=== PATIENT | female | born 1965 | race Caucasian/White ===

== ENCOUNTER → 2022-03-03 11:32 | Outpatient (BNVA) | payer OTHER, SELFPAY | PROVIDERS: PCP Nurse Practitioner Family; Visit Provider Internal Medicine Critical Care Medicine | DX: J84.112 Idiopathic pulmonary fibrosis (principal); R06.02 Shortness of breath | CPT/HCPCS: 36415; 82085; 82550; 85651; 86038; 86140; 86200; 86235; 86431 ==

== ENCOUNTER 2022-03-24 13:30 | Outpatient (CLI) | payer OTHER, SELFPAY ==
--- NOTE | 2022-03-24 14:00 | CT_ITS ---
WS: [id number] CT CHEST TECHNIQUE: Noncontrast CT of the chest with coronal and sagittal reformatted images. CLINICAL INFORMATION: Idiopathic pulmonary fibrosis COMPARISON: None. DLP: 1738.[address] scans at [facility] use at least one of these dose optimization techniques: automated e xposure control; mA and/or kV adjustment per patient size (includes targeted exams where dose is matc hed to clinical indication); or iterative reconstruction. FINDINGS: Postoperative bilateral breast implants. Moderate chronic emphysematous changes. Periseptal emphysema . Subpleural honeycombing in the mid and lower lungs bilaterally. Chronic interstitial thickening wit h scattered reticular opacities. Mild traction bronchiectasis LEFT upper lobe. Aortic calcification. Aberrant RIGHT subclavian artery. No mediastinal or hilar lymphadenopathy. A fe w prominent anterior mediastinal lymph nodes and paratracheal lymph nodes likely reactive. Adrenal glands are normal. Small esophageal hiatal hernia. No axillary lymphadenopathy. No significan t air trapping on expiratory imaging. CT/CT chest wo con [id number] IMPRESSION: 1. Findings compatible with idiopathic pulmonary fibrosis. 2. Subpleural honeycombing in the mid and lower lungs bilaterally. 3. No significant air trapping on the expiratory images. 4. Scattered reticular opacities with mild traction bronchiectasis LEFT upper lobe. 5. Chronic emphysematous changes with periseptal emphysema. 6. Aberrant RIGHT subclavian artery.
== END 2022-03-24 13:31 | disposition home or self-care (01) ==
PROVIDERS: PCP Nurse Practitioner Family; Visit Provider Internal Medicine Critical Care Medicine
DX: J84.112 Idiopathic pulmonary fibrosis (principal); J98.4 Other disorders of lung; J47.9 Bronchiectasis, uncomplicated; J43.8 Other emphysema; Q27.8 Other specified congenital malformations of peripheral vascular system
CPT/HCPCS: 71250

== ENCOUNTER → 2022-03-28 11:25 | Outpatient (BNVA) | payer OTHER, SELFPAY | PROVIDERS: PCP Nurse Practitioner Family; Visit Provider Internal Medicine Critical Care Medicine | DX: J84.112 Idiopathic pulmonary fibrosis (principal); R06.02 Shortness of breath | CPT/HCPCS: 80053; 85025 ==

== ENCOUNTER → 2022-04-11 10:13 | Outpatient (BNVA) | payer OTHER, SELFPAY | PROVIDERS: PCP Nurse Practitioner Family; Visit Provider Internal Medicine Rheumatology | DX: R76.8 Other specified abnormal immunological findings in serum (principal); J84.9 Interstitial pulmonary disease, unspecified; J84.112 Idiopathic pulmonary fibrosis | CPT/HCPCS: 36415; 86160; 86162; 86235; 86255; 86376 ==

== ENCOUNTER 2022-06-08 20:14 | Emergency (ER) | payer OTHER, SELFPAY ==
[2022-06-08 20:24] VITALS: BP 105/67; PULSE 105; RESP 22; TEMP 36.8; O2SAT 90; BMI 31.3
[2022-06-08 21:58] VITALS: BP 125/68; PULSE 85; RESP 16; TEMP 37.5; O2SAT 93
[2022-06-08 22:00] VITALS: O2SAT 93
--- NOTE | 2022-06-08 22:01 | ED_ITS ---
HPI - COVID General: Chief Complaint: COVID symptoms Stated Complaint: Sinus Draining\Cough\Weak Time Seen by Provider: 06/08/22 22:01 Triage information: Has fever, cough or shortness of breath . Exposure to COVID + person last 14 days History of Present Illness: Ms. Mario is a 56-year-old lady with history of interstitial lung disease who presents to the emergency department due to shortness of breath. She has known positive exposure to COVID and though he has had mild symptoms. Symptom onset was approximately 5 days ago and subacute. She endorses generalized malaise, headache, shortness of breath, mildly productive cough, and muscle aches. Intensity symptoms is moderate and worse with exertion. No other specific changes in health, exacerbating, or alleviating factors identified. 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 Hypothyroidism Polycystic ovarian disease Positive ALFREDO (antinuclear antibody) Surgical History H/O breast augmentation H/O removal of cyst Family History Father Cancer Other Lupus Denies family history of Rheumatoid arthritis Diabetes Chronic kidney disease (CKD) Family history of premature coronary artery disease Lung disease Hypertension Stroke Social History Smoking and tobacco status: never smoked Quit status (tobacco): has quit using tobacco Year quit tobacco: 2018 Former quit date comment: 1 ppd X 37 years, started at age 15 Physical Exam Const: COMMON NORMALS: alert GENERAL APPEARANCE: cooperative, well developed and ill appearing (somewhat) HENMT: COMMON NORMALS: normocephalic and atraumatic HEAD & SCALP: normocephalic and atraumatic THROAT: posterior oropharynx normal Eye: COMMON NORMALS: conjunctivae normal CONJUNCTIVA: Yes conjunctivae normal SCLERA: sclerae normal Neck/C-Spine: COMMON NORMALS: supple GENERAL: Yes trachea midline Resp: EFFORT & INSPECTION: Yes able to speak in complete sentences AUSCULTATION: other (coarse, velcro-like) Cardio: COMMON NORMALS: regular rhythm RATE: tachycardic RHYTHM: regular rhythm GI: COMMON NORMALS: Soft to palpation PALPATION: Yes Soft to palpation and No Tenderness to palpation present (GI) PERCUSSION: normal to percussion Extremity: GENERAL: Yes normal exam except as noted and No edema Neuro: COMMON NORMALS: moves all extremities SENSORIUM/ORIENTATION: Yes alert and No Orientation impaired Psych: COMMON NORMALS: mental status grossly normal and Normal thought process present THOUGHT PROCESS: Normal thought process present Course ED course: - Patient was seen and evaluated by me at bedside - Patient placed on cardiac monitors, IV access obtained - Initial evaluation notable for exam as above. New oxygen requirement. - Labs and xrays personally interpreted by me - Fluids, analgesia, and antiemetics given - Labs notable for COVID-positive. mild Leukocytosis, normal hemoglobin. Metabolic panel with mild evidence of dehydration. Elevated TSH with normal free T4. No evidence of urinary tract action. - Imaging notable for bilateral infiltrates. No pneumothorax. - Upon serial reexamination after treatment the patient was improved - Based on patient history, evaluation, and testing as interpreted the most likely cause of the patient's condition is COVID in the context of Idiopathic interstitial lung disease. Patient qualifies for home oxygen. - The results of ED evaluation were discussed with the patient including prescriptions and/or symptomatic cares (if applicable) including appropriate and responsible use, followup plan, and return precautions. The patient verbalized understanding and felt safe for discharge. - Patient discharged in satisfactory condition. Note: Click bubbles or prepopulated bejarano in note writing are used for assistance with data collection and billing and are inherently more limited than narrative and other text portions of this note. Please use narrative for additional clinical history and defer to narrative/free test for any case of contradictory information. If information appears in only free text or click bubble it should be considered present or absent as reported. Please contact note blog writer for clarifications of clinical information or contradictory information. MDM is a brief summary, contradictory or erroneous seeming information should be clarified and full note should be reviewed. Vital Signs: Vital signs: Vital Signs Temperature 99.5 F 06/08/22 21:58 Pulse Rate 80 06/09/22 02:30 Respiratory Rate 20 H 06/09/22 02:30 Blood Pressure 125/68 06/08/22 21:58 Pulse Oximetry 97 06/09/22 02:30 Oxygen Delivery Me thod 06/08/22 22:00 Oxygen Flow Rate 2 06/08/22 22:00 MDM - COVID Medical Decision Making 56-year-old lady with history of pulmonary fibrosis presenting due to infectious symptoms in the context of positive COVID exposure. Patient has requirement of 2 L which is somewhat new. Improved with treatment. COVID positive. Satisfactory for outpatient management. Discussed risk of Paxlovid and EUA status, patient wishes to proceed. Strict return precautions given. Medical Records I reviewed the patient's medical records. Lab Data I reviewed the patient's lab results. : 06/08/22 22:12 06/08/22 22:12 Radiology Impressions Chest X-Ray 06/08/22 22:21 IMPRESSION: 1. Patchy bilateral largely peripheral and largely left lower lobe airspace infiltrates. 2. Emphysematous changes. Laboratory Results WBC 10.3 10^3/uL (4.0-10.0) H 06/08/22 22:12 RBC 3.53 10^6/uL (4.1-5.3) L 06/08/22 22:12 Hgb 11.6 g/dL (11.5-15.3) 06/08/22 22:12 Hct 35.6 % (37.0-47.0) L 06/08/22 22:12 MCV 100.8 fl (81-99) H 06/08/22 22:12 MCH 32.9 pg (28.0-34.0) 06/08/22 22:12 MCHC 32.6 g/dL (30.0-36.0) 06/08/22 22:12 RDW 13.0 % (12.1-15.1) 06/08/22 22:12 Plt Count 246 10^3/cmm (130-400) 06/08/22 22:12 MPV 10.1 fL (7.4-10.4) 06/08/22 22:12 Neut % (Auto) 61.7 % 06/08/22 22:12 Lymph % (Auto) 22.8 % 06/08/22 22:12 [place] % (Auto) 14.2 % 06/08/22 22:12 Eos % (Auto) 0.3 % 06/08/22 22:12 Baso % (Auto) 0.6 % 06/08/22 22:12 Neut # (Auto) 6.35 10^3/uL (1.8-7.7) 06/08/22 22:12 Lymph # (Auto) 2.4 10^3/uL (0.8-4.8) 06/08/22 22:12 [place] # (Auto) 1.5 10^3/uL (0.2-0.9) H 06/08/22 22:12 Eos # (Auto) 0.0 10^3/uL (0.0-0.8) 06/08/22 22:12 Baso # (Auto) 0.1 10^3/uL (0.0-0.1) 06/08/22 22:12 Nucleated RBC % (auto) 0 % 06/08/22 22:12 Nucleated RBCs # 0.0 /100WBC 06/08/22 22:12 Sodium 134 mmol/L (136-145) L 06/08/22 22:12 Potassium 4.1 mmol/L (3.5-5.1) 06/08/22 22:12 Chloride 95 mmol/L (98-107) L 06/08/22 22:12 Carbon Dioxide 24 mmol/L (22-29) 06/08/22 22:12 Anion Gap 19.1 (5-19) H 06/08/22 22:12 BUN 16 mg/dL (6-20) 06/08/22 22:12 Creatinine 0.9 mg/dL (0.5-0.9) 06/08/22 22:12 GFR Calculation 64.5 mL/min (90-130) L 06/08/22 22:12 Glucose 105 mg/dL (65-115) 06/08/22 22:12 Calculated Osmolality 280 mOsm/kg (285-295) L 06/08/22 22:12 Lactate 1.5 mmol/L (0.5-2.2) 06/08/22 22:12 Calcium 9.0 mg/dL (8.5-10.5) 06/08/22 22:12 Total Bilirubin 0.2 mg/dL (0.15-1.2) 06/08/22 22:12 AST 28 U/L (0-32) 06/08/22 22:12 ALT 20 U/L (0-33) 06/08/22 22:12 Alkaline Phosphatase 75 IU/L (35-105) 06/08/22 22:12 C-Reactive Protein 64.0 mg/L (0.0-4.9) H 06/08/22 22:12 NT-Pro-B Natriuret Pep 39 pg/mL (0-125) 06/08/22 22:12 Total Protein 8.1 g/dL (6.6-8.7) 06/08/22 22:12 Albumin 4.1 g/dL (3.5-5.2) 06/08/22 22:12 Globulin 4.0 g/dL (1.3-4.6) 06/08/22 22:12 Procalcitonin 0.08 ng/mL (0-0.5) 06/08/22 22:12 TSH 4.25 uIU/mL (0.27-4.20) H 06/08/22 22:12 Free T4 0.83 ng/dL (0.82-1.77) 06/08/22 22:12 Urine Color Yellow (Yellow) 06/08/22 22:12 Urine Appearance Clear (CLEAR) 06/08/22 22:12 Urine pH 5 (5-7) 06/08/22 22:12 Ur Specific [place] 1.020 (1.005-1.030) 06/08/22 22:12 Urine Protein Neg (Negative) 06/08/22 22:12 Urine Glucose (UA) Norm (Normal) 06/08/22 22:12 Urine Ketones 1+ (Negative) H 06/08/22 22:12 Urine Blood Neg (Negative) 06/08/22 22:12 Urine Nitrate Negative (Negative) 06/08/22 22:12 Urine Bilirubin Neg (Negative) 06/08/22 22:12 Urine Urobilinogen Norm mg/dL (Negative) 06/08/22 22:12 Ur Leukocyte Esterase Trace (Negative) H 06/08/22 22:12 Urine RBC 0-4 /hpf (0-2) H 06/08/22 22:12 Urine WBC 0-4 /hpf (0-5) H 06/08/22 22:12 Ur Squamous Epith Cells 0-4 /hpf (0-5) H 06/08/22 22:12 Amorphous Sediment Not Reportable 06/08/22 22:12 Urine Bacteria Trace /hpf (NONE) 06/08/22 22:12 Urine Mucus 1+ /hpf 06/08/22 22:12 Influenza Type A Ag Negative (Negative) 06/08/22 22:12 Influenza Type B Ag Negative (Negative) 06/08/22 22:12 SARS-CoV-2 Ag (Rapid) Positive (Negative) H 06/08/22 22:12 SARS-CoV-2 Antigen (Rapid) Positive (Negative) H 06/08/22 22:1 2 Discharge Plan Discharge Patient Disposition: Home Clinical Impression: COVID-19, Idiopathic pulmonary fibrosis, Hypoxia Condition: Stable Prescriptions: New Paxlovid (EUA) 150 mg x 2- 100 mg tablet See Rx Instructions .ROUTE .COMPLEX Qty: 6 0RF Rx Instructions: orally per package directions benzonatate 100 mg capsule 100 mg PO BID PRN (Reason: cough) Qty: 10 0RF ondansetron 4 mg tablet,disintegrating 4 mg PO Q8H PRN (Reason: nausea and vomiting) Qty: 15 0RF albuterol sulfate 90 mcg/actuation HFA aerosol inhaler 2 inh inhalation Q4H PRN (Reason: shortness of breath or wheezing) Qty: 8.5 0RF No Action lorazepam 0.5 mg tablet 0.5 mg PO BID PRN Zyrtec 10 mg capsule 10 mg PO DAILY PRN cholecalciferol (vitamin D3) 50 mcg (2,000 unit) capsule 2,000 unit PO DAILY ascorbic acid (vitamin C) 1,000 mg tablet 2 g PO DAILY Esbriet 267 mg capsule See Rx Instructions PO .COMPLEX Qty: 207 0RF Rx Instructions: take 1 capsule 3 times daily for 7 days; 2 capsules 3 times daily for 7 days, then 3 capsules 3 times daily. PO Discharge Orders: Discharge ED (Routine); Ordered 06/09/22 Ordered By: Alphonso Weiss Other Ambulatory Orders: DME: Oxygen (Order) Location: None Selected Ordered By: Alphonso Weiss Referrals: Zoila Chaney FNP [Primary Care Provider] - Discharge Diet: Usual diet Discharge Activity: Limit activity as instructed Patient Instructions: Nirmatrelvir/Ritonavir (By mouth) (Paxlovid), Using Oxygen at Home (ED), COVID-19 (Coronavirus Disease 2019) (ED), Opioid Safety Activity Restrictions/Additional Instructions: Thank you for visiting the emergency department. You were seen and evaluated for shortness of breath and generalized symptoms. You were found of COVID-19 which likely explains your symptoms. This will be treated with Paxlovid which is authorized under emergency use as discussed. Additionally I will prescribe antinausea medication, steroids, and cough drops. Please follow-up with your primary care provider. Please return to the emergency department for worsening symptoms, oxygen saturation less than 90% on 2 L, or anything else that you are concerned about a feel needs emergency department evaluation. Coding Level of Care Code ED Accounts Receivable Administrator for Yaquelin Isbell
--- NOTE | 2022-06-08 22:21 | XRR_ITS ---
PROCEDURE INFORMATION: Exam: XR Chest Exam date and time: 06/08/2022 10:54 PM Age: 56 years old Clinical indication: Shortness of breath; Additional info: SOB TECHNIQUE: Imaging protocol: Radiologic exam of the chest. Views: 1 view. COMPARISON: CT chest con [id number] 03/24/2022 2:05 PM FINDINGS: Lungs: Patchy bilateral largely peripheral and largely left lower lobe airspace infiltrates. Emphysematous changes. Pleural spaces: Unremarkable. No pleural effusion. No pneumothorax. Heart/Mediastinum: Unremarkable. No cardiomegaly. Bones/joints: Unremarkable. XR/XR chest 1V portable [id number] IMPRESSION: 1. Patchy bilateral largely peripheral and largely left lower lobe airspace infiltrates. 2. Emphysematous changes.
[2022-06-08 22:47] LABS: Basophils # 0.1 10^3/uL (0.0-0.1); Basophils % 0.6 %; Eosinophils % 0.3 %; Hematocrit 35.6 % (37.0-47.0); Hemoglobin 11.6 g/dL (11.5-15.3); Lymphocytes # 2.4 10^3/uL (0.8-4.8); Lymphocytes % 22.8 %; Mean Corpuscular HGB Conc 32.6 g/dL (30.0-36.0); Mean Corpuscular Hemoglobin 32.9 pg (28.0-34.0); Mean Corpuscular Volume 100.8 fl (81-99); Mean Platelet Volume 10.1 fL (7.4-10.4); Monocytes # 1.5 10^3/uL (0.2-0.9); Monocytes % 14.2 %; Neutrophils # 6.35 10^3/uL (1.8-7.7); Neutrophils % 61.7 %; Nucleated Red Blood Cells % 0 %; Platelet Count 246 10^3/cmm (130-400); Red Blood Count 3.53 10^6/uL (4.1-5.3); White Blood Count 10.3 10^3/uL (4.0-10.0)
[2022-06-08 22:48] LABS: Add Urine Culture? No; Add Urine Microscopic? YES; Bacteria Urine TRACE /hpf; Bilirubin Urine Neg (Negative); Blood Urine Neg (Negative); Glucose Urine UA Norm (Normal); Ketones Urine 1+ (Negative); Leukocyte Esterase Urine Trace (Negative); Mucus Urine 1+ /hpf; Nitrate Urine Negative (Negative); Protein Urine Neg (Negative); RBC Urine 0-4 /hpf (0-2); Squamous Epithelial Cell Urine 0-4 /hpf (0-5); Urine Appearance Clear (CLEAR); Urine Color Yellow (Yellow); Urobilinogen Urine Norm (Negative); WBC Urine 0-4 /hpf (0-5); pH Urine 5 (5-7)
[2022-06-08 22:55] LABS: SARS Covid-2 Antigen Positive (Negative)
[2022-06-08 22:56] LABS: Influenza A by IFA Negative (Negative); Influenza B by IFA Negative (Negative)
[2022-06-08 22:57] LABS: Lactate (Lactic Acid level) 1.5 mmol/L (0.5-2.2)
[2022-06-08 23:08] LABS: NT Pro B Type Natriuretic Pept 39 pg/mL (0-125); Procalcitonin 0.08 ng/mL (0-0.5); Thyroid Stimulating Hormone 4.25 uIU/mL (0.27-4.20)
[2022-06-08 23:19] LABS: Alanine Aminotransferase 20 U/L (0-33); Albumin Level 4.1 g/dL (3.5-5.2); Alkaline Phosphatase 75 IU/L (35-105); Anion Gap 19.1 (5-19); Aspartate Amino Transferase 28 U/L (0-32); Blood Urea Nitrogen 16 mg/dL (6-20); Carbon Dioxide 24 mmol/L (22-29); Chloride 95 mmol/L (98-107); Glomerular Filtration Rate 64.5 mL/min (90-130); Glucose 105 mg/dL (65-115); Osmolality Calculated 280 mOsm/kg (285-295); Potassium 4.1 mmol/L (3.5-5.1); Sodium 134 mmol/L (136-145); Total Bilirubin 0.2 mg/dL (0.15-1.2); Total Protein 8.1 g/dL (6.6-8.7)
[2022-06-08] MEDS: sodium chloride 0.9% 1,000 ML 999 ML IV (23:24)
[2022-06-08] MEDS: ketorolac 30 mg/mL INJ 15 MG IVP (23:25)
[2022-06-08] MEDS: ondansetron 2 mg/ML SDV 2 mL 4 MG IVP (23:25)
[2022-06-08] MEDS: benzonatate 100 mg Capsule PO (23:36)
[2022-06-08 23:56] LABS: Free T4 Free Thyroxine 0.83 ng/dL (0.82-1.77)
[2022-06-09] MEDS: dexamethasone 10 mg/mL INJ 6 MG IVP (00:48)
[2022-06-09 02:30] VITALS: PULSE 80; RESP 20; O2SAT 97
== END 2022-06-09 02:30 | disposition home or self-care (01) ==
PROVIDERS: Emergency Provider Emergency Medicine; PCP Nurse Practitioner Family
DX: U07.1 COVID-19 (principal); J84.112 Idiopathic pulmonary fibrosis; R09.02 Hypoxemia; Z87.891 Personal history of nicotine dependence
CPT/HCPCS: 71045; 80053; 81001; 83605; 83880; 84145; 84439; 84443; 85025; 86140; 87426; 87804; 96361; 96374; 96375; 99284; J1100; J1885; J2405; J7030

== ENCOUNTER → 2022-07-15 11:34 | Outpatient (BNVA) | payer OTHER, SELFPAY | PROVIDERS: PCP Nurse Practitioner Family; Visit Provider Internal Medicine Critical Care Medicine | DX: J84.112 Idiopathic pulmonary fibrosis (principal); J96.11 Chronic respiratory failure with hypoxia | CPT/HCPCS: 80053; 85025 ==

== ENCOUNTER 2022-08-15 09:48 | Outpatient (CLI) | payer OTHER, SELFPAY ==
[2022-08-15 10:27] LABS: Basophils % 0.5 %; Eosinophils # 0.1 10^3/uL (0.0-0.8); Eosinophils % 1.6 %; Hematocrit 42.4 % (37.0-47.0); Hemoglobin 13.7 g/dL (11.5-15.3); Lymphocytes # 1.9 10^3/uL (0.8-4.8); Lymphocytes % 32.1 %; Mean Corpuscular HGB Conc 32.3 g/dL (30.0-36.0); Mean Corpuscular Hemoglobin 32.5 pg (28.0-34.0); Mean Corpuscular Volume 100.5 fl (81-99); Mean Platelet Volume 10.2 fL (7.4-10.4); Monocytes # 0.6 10^3/uL (0.2-0.9); Monocytes % 10.2 %; Neutrophils % 55.6 %; Nucleated Red Blood Cells % 0 %; Platelet Count 196 10^3/cmm (130-400); Red Blood Count 4.22 10^6/uL (4.1-5.3); Red Cell Distribution Width 12.9 % (12.1-15.1); White Blood Count 5.8 10^3/uL (4.0-10.0)
[2022-08-15 10:37] LABS: Erythrocyte Sedimentation Rate 11 mm/hr (0-15)
[2022-08-15 10:47] LABS: Alanine Aminotransferase 13 U/L (0-33); Albumin Level 4.3 g/dL (3.5-5.2); Alkaline Phosphatase 87 U/L (35-105); Anion Gap 14.1 (5-19); Aspartate Amino Transferase 20 U/L (0-32); Blood Urea Nitrogen 13 mg/dL (6-20); Calcium 9.2 mg/dL (8.5-10.5); Carbon Dioxide 28 mmol/L (22-29); Chloride 103 mmol/L (98-107); Globulin 2.9 g/dL (1.3-4.6); Glomerular Filtration Rate 85.9 mL/min (90-130); Glucose 102 mg/dL (65-115); Osmolality Calculated 292 mOsm/kg (285-295); Potassium 4.1 mmol/L (3.5-5.1); Sodium 141 mmol/L (136-145); Total Bilirubin 0.2 mg/dL (0.15-1.2); Total Protein 7.2 g/dL (6.6-8.7)
[2022-08-15 11:06] LABS: 25 Hydroxy Vitamin D 66 ng/mL (30-100); Alanine Aminotransferase 12 U/L (0-33); Albumin Level 4.3 g/dL (3.5-5.2); Alkaline Phosphatase 87 U/L (35-105); Aspartate Amino Transferase 21 U/L (0-32); Globulin 3.1 g/dL (1.3-4.6); Glomerular Filtration Rate 73.7 mL/min (90-130); Thyroid Stimulating Hormone 2.55 uIU/mL (0.27-4.20); Total Bilirubin 0.2 mg/dL (0.15-1.2); Total Protein 7.4 g/dL (6.6-8.7)
[2022-08-15 11:40] LABS: Free T4 Free Thyroxine 1.07 ng/dL (0.82-1.77)
[2022-08-18 23:06] LABS: Myositis EJ AB <11 SI (<11); Myositis JO-1 AB <11 SI (<11); Myositis MDA-5 AB <11 SI (<11); Myositis MI-2 Alpha AB <11 SI (<11); Myositis MI-2 Beta AB <11 SI (<11); Myositis NXP-2AB <11 SI (<11); Myositis OJ AB <11 SI (<11); Myositis PL-12 AB <11 SI (<11); Myositis PL-7 AB <11 SI (<11); Myositis SRP AB <11 SI (<11); Myositis TIF-1y AB <11 SI (<11)
== END 2022-08-15 09:49 | disposition home or self-care (01) ==
PROVIDERS: PCP Nurse Practitioner Family; Referring Provider Internal Medicine Critical Care Medicine; Visit Provider Internal Medicine Rheumatology
DX: J84.9 Interstitial pulmonary disease, unspecified (principal); R76.8 Other specified abnormal immunological findings in serum; Z79.899 Other long term (current) drug therapy; M60.9 Myositis, unspecified; J84.112 Idiopathic pulmonary fibrosis
CPT/HCPCS: 36415; 80053; 80076; 81401; 82306; 82565; 84182; 84439; 84443; 85025; 85651; 86235

== ENCOUNTER 2022-08-23 14:25 | Outpatient (CLI) | payer OTHER, SELFPAY ==
--- NOTE | 2022-08-23 14:30 | XR_ITS ---
WS: [id number] DEXA (DUAL ENERGY X-RAY ABSORPTIOMETRY) Bone mineral density was performed using a Pebble machine. 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 Lumbar spine BMD (L1-L4): 0.974 g/cm2 T score: -1.7 Z score: -1.5 Total hip BMD: Left: 0.928 g/cm2. T score: -0.6 Z score: -0.4 Right: 0.879 g/cm2. T score: -1.0 Z score: -0.8 10 year probability of a major osteoporotic fracture is 6.4%. XR/XR DEXA axial skeleton* [id number] IMPRESSION: OSTEOPENIA based upon the WHO classification for females.
== END 2022-08-23 14:26 | disposition home or self-care (01) ==
LOC: RAD 14:26
PROVIDERS: PCP Nurse Practitioner Family; Visit Provider Internal Medicine Critical Care Medicine
DX: Z01.818 Encounter for other preprocedural examination (principal); M85.80 Other specified disorders of bone density and structure, unspecified site
CPT/HCPCS: 77080

== ENCOUNTER → 2022-09-19 16:00 | Outpatient (BNVA) | payer OTHER, SELFPAY | PROVIDERS: PCP Nurse Practitioner Family; Visit Provider Internal Medicine Pulmonary Disease | DX: R09.89 Other specified symptoms and signs involving the circulatory and respiratory systems (principal); R06.02 Shortness of breath; J84.9 Interstitial pulmonary disease, unspecified; J84.112 Idiopathic pulmonary fibrosis; R76.8 Other specified abnormal immunological findings in serum; U07.1 COVID-19; J96.11 Chronic respiratory failure with hypoxia | CPT/HCPCS: 36415; 82785; 85025; 85651; 86003 ==

== ENCOUNTER 2022-12-16 10:23 | Outpatient (CLI) | payer OTHER, SELFPAY ==
[2022-12-16 12:05] LABS: Alanine Aminotransferase 26 U/L (0-33); Albumin Level 4.3 g/dL (3.5-5.2); Alkaline Phosphatase 90 U/L (35-105); Anion Gap 15.1 (5-19); Aspartate Amino Transferase 23 U/L (0-32); Blood Urea Nitrogen 18 mg/dL (6-20); Calcium 9.3 mg/dL (8.5-10.5); Carbon Dioxide 28 mmol/L (22-29); Chloride 103 mmol/L (98-107); Chol HDL Ratio 2.51 mg/dL (0.0-4.40); Cholesterol 206 mg/dL (0-200); Globulin 3.3 g/dL (1.3-4.6); Glomerular Filtration Rate 73.7 mL/min (90-130); Glucose 89 mg/dL (65-115); HDL Cholesterol 82 mg/dL (60-100); LDL Cholesterol Calculated 91 mg/dL (50-129); LDL HDL Ratio 1.11 RATIO (0.00-3.22); Osmolality Calculated 295 mOsm/kg (285-295); Potassium 4.1 mmol/L (3.5-5.1); Sodium 142 mmol/L (136-145); Total Bilirubin 0.2 mg/dL (0.15-1.2); Total Protein 7.6 g/dL (6.6-8.7); Triglycerides 164 mg/dL (0-150)
== END 2022-12-16 10:24 | disposition home or self-care (01) ==
PROVIDERS: PCP Nurse Practitioner Family; Referring Provider Nurse Practitioner Family; Visit Provider Internal Medicine Pulmonary Disease
DX: J84.112 Idiopathic pulmonary fibrosis (principal); E78.5 Hyperlipidemia, unspecified
CPT/HCPCS: 36415; 80053; 80061

== ENCOUNTER 2023-03-16 11:04 | Outpatient (CLI) | payer OTHER, SELFPAY ==
[2023-03-16 12:07] LABS: Alanine Aminotransferase 16 U/L (0-33); Albumin Level 4.3 g/dL (3.5-5.2); Alkaline Phosphatase 91 U/L (35-105); Anion Gap 13.3 (5-19); Aspartate Amino Transferase 26 U/L (0-32); Blood Urea Nitrogen 14 mg/dL (6-20); Calcium 9.7 mg/dL (8.5-10.5); Carbon Dioxide 28 mmol/L (22-29); Chloride 100 mmol/L (98-107); Globulin 3.3 g/dL (1.3-4.6); Glomerular Filtration Rate 73.7 mL/min (90-130); Glucose 95 mg/dL (65-115); Osmolality Calculated 284 mOsm/kg (285-295); Potassium 4.3 mmol/L (3.5-5.1); Sodium 137 mmol/L (136-145); Total Bilirubin 0.3 mg/dL (0.15-1.2); Total Protein 7.6 g/dL (6.6-8.7)
== END 2023-03-16 11:05 | disposition home or self-care (01) ==
LOC: LAB 11:12
PROVIDERS: PCP Nurse Practitioner Family; Visit Provider Internal Medicine Pulmonary Disease
DX: J84.112 Idiopathic pulmonary fibrosis (principal)
CPT/HCPCS: 36415; 80053

== ENCOUNTER → 2023-08-17 11:48 | Outpatient (BNVA) | payer OTHER, SELFPAY | PROVIDERS: PCP Nurse Practitioner Family; Visit Provider Internal Medicine Pulmonary Disease | DX: J84.9 Interstitial pulmonary disease, unspecified (principal); E78.00 Pure hypercholesterolemia, unspecified | CPT/HCPCS: 36415; 80076 ==

== ENCOUNTER 2024-02-13 12:07 | Outpatient (CLI) | payer OTHER, SELFPAY ==
[2024-02-13 13:07] LABS: Alanine Aminotransferase 19 U/L (0-33); Albumin Level 4.5 g/dL (3.5-5.2); Alkaline Phosphatase 96 U/L (35-105); Aspartate Amino Transferase 22 U/L (0-32); Chol HDL Ratio 3.14 mg/dL (0.0-4.40); Cholesterol 251 mg/dL (0-200); Globulin 3.7 g/dL (1.3-4.6); HDL Cholesterol 80 mg/dL (60-100); LDL Cholesterol Calculated 135 mg/dL (50-129); Total Bilirubin 0.2 mg/dL (0.15-1.2); Total Protein 8.2 g/dL (6.6-8.7); Triglycerides 178 mg/dL (0-150); VLDL Cholestrol Calculation 36 mg/dL (0-30)
== END 2024-02-13 12:08 | disposition home or self-care (01) ==
LOC: LAB 12:11
PROVIDERS: PCP Nurse Practitioner Family; Visit Provider Internal Medicine Pulmonary Disease
DX: J96.11 Chronic respiratory failure with hypoxia (principal); E78.00 Pure hypercholesterolemia, unspecified; J84.112 Idiopathic pulmonary fibrosis
CPT/HCPCS: 36415; 80061; 80076